=== PATIENT | female | born 1980 | race Caucasian/White ===

== ENCOUNTER → 2017-02-11 | Outpatient (CLI) | payer OTHER ==
[~2017-02-11] MED LIST: CALCIUM PO; CERTAGEN PO; EFFEXOR PO; FISH OIL 1,0001 CAP PO; METFORMIN PO; NEXIUM PO; SINGULAIR PO; SYNTHROID PO; VITAMIN D2000 UNIT PO
--- NOTE | ~2017-02-11 | CR97 ---
[facility] A Service of [facility] RADIOLOGY TEXT RESULTS PATIENT: LALO CHEEMA LOCATION: [facility]MA : 76 UNIT #: [id number] AGE: [address]: German Lynch III, MD SEX: F ORDER DR: [id number] [facility] [address]. [place], [place] [address] [id number] O MR#: [id number] Acc #: [id number] NAME: LALO CHEEMA : 1980 SEX: F STUDY DATE/TIME: 02/11/2017 11:00 UNIT: [facility] ROOM: STUDY DESCRIPTION: CR Esophagram Attending Physician: German Lynch III, M.D. Ordering Physician: German Lynch III, M.D. Primary Care Physician: Mounika Pérez M.D. MEDICAL IMAGING REPORT This report is preliminary unless electronic signature is present EXAM Esophagram, 02/11/2017. HISTORY Dysphagia. Possible slipped band. Pain and swelling in the abdomen for 5 days. TECHNIQUE Single contrast esophagram was performed. 31 images and a pumper gager view were obtained. Fluoro time is 0.6 minutes. COMPARISON KUB, 01/16/2009. FINDINGS The upright pumper gager view shows a gastric band in place with a phi angle of about 69 degrees. It appears slightly rotated toward the horizontal. Bowel gas pattern is normal. Esophageal motility is normal. No rings or strictures are seen. The band does appear to be slipped slightly distally over the stomach. The gastric pouch above the band is slightly larger than expected, and the band does appear to be rotated toward the horizontal. The band is not causing any obstruction at this time. Per patient report, all of the fluid in the band has been recently removed. IMPRESSION The band appears slipped slightly distally over the stomach and is rotated toward the horizontal. It is not causing any obstruction at this time. Dictated by... [facility] A Service [facility] RADIOLOGY TEXT RESULTS PATIENT: LALO CHEEMA LOCATION: [facility] : [birth year] UNIT #: [id number] AGE: [address]: German Lynch III, MD SEX: F ORDER DR: Madhu Jordan Jr., M.D. THIS IS AN ELECTRONICALLY VERIFIED REPORT Madhu Jordan Jr., M.D. at 02/11/2017 2:49 PM KALINA/connie TD: 02/11/2017 14:36 JOB #: [id number] MEDICAL IMAGING REPORT Page 1 of 1 COPY
== END | disposition home or self-care (01) ==
LOC: CRAD 10:07
DX: R13.10 Dysphagia, unspecified (principal)
CPT/HCPCS: 74220

== ENCOUNTER → 2017-02-15 | Outpatient (CLI) | payer OTHER ==
--- NOTE | ~2017-02-15 | EKG ---
PATIENT: LALO CHEEMA UNIT #: [id number] Ventricular Rate: 81 BPM Atrial Rate: 81 BPM P-R Interval: 136 ms QRS Duration: 72 ms Q-T Interval: 356 ms QTC Calculation(Bezet): 413 ms P [place]: 54 degrees Calculated R [place]: 28 degrees Calculated T [place]: 19 degrees Diagnosis Line: Normal sinus rhythm Diagnosis Line: Normal ECG Diagnosis Line: No previous ECGs available Diagnosis Line: Confirmed by DAVEY WALLACE MD ([id number]) on 02/16/2017 Diagnosis Line: 11:14:28 PM INTERPRETING MD: RODRIGO GOMEZ
[2017-02-15 11:18] LABS: BUN/CREATININE RATIO 14.28; CALCIUM SERUM 9.1 mg/dL (8.4-10.2); CREATININE SERUM 0.7 mg/dL (0.6-1.4); GLOM FILT RATE Estimated 109.9 mL/min (>60); POTASSIUM 4.6 mmol/L (3.5-5.1)
== END | disposition home or self-care (01) ==
LOC: CAMB 09:53
PROVIDERS: Surgery
DX: Z01.818 Encounter for other preprocedural examination (principal); K44.9 Diaphragmatic hernia without obstruction or gangrene
CPT/HCPCS: 36415; 80048; 93005

== ENCOUNTER → 2017-02-24 | Day surgery (SDC) | payer OTHER ==
--- NOTE | ~2017-02-24 | OR ---
Unit #: [id number] #: [id number] Patient: LALO CHEEMA 16[address] [address] [address] [id number] O MR#: [id number] NAME: LALO CHEEMA ROOM: Date of Procedure: 02/24/2017 Admission Date: 02/24/2017 Surgeon: German Lynch III, M.D. : 1980 Attending Physician: German Lynch III, M.D. Referring Physician: German Lynch III, M.D. Primary Care Physician: Ila Miranda M.D. OPERATIVE REPORT PREOPERATIVE DIAGNOSIS Paraesophageal hernia with reflux. POSTOPERATIVE DIAGNOSIS Paraesophageal hernia with reflux. PROCEDURE PERFORMED Laparoscopic repair of paraesophageal hernia without fundoplication. HARNESS WORKER Vinod Villar M.D.. SPECIMENS None. COMPLICATIONS None apparent. ESTIMATED BLOOD LOSS Minimal. ANESTHESIA General endotracheal tube anesthesia. INDICATIONS FOR PROCEDURE This is a 36-year-old lady, who presented with some worsening reflux despite being on medication. She had an upper GI, which I reviewed and showed a hiatal hernia with significant reflux. She is here today for laparoscopic paraesophageal hernia repair. DESCRIPTION OF PROCEDURE After consent was obtained, the patient was brought to the operating room and placed in supine position. General anesthetic was administered and her abdomen was prepped and draped in standard surgical fashion. I made a 1 cm incision just above and left of the umbilicus. I used a Visiport to enter into the peritoneal cavity without any difficulty. CO2 pneumoperitoneum was then established. Next, a second 5-mm port was placed in the epigastric region and then removed to provide placement of the James liver retractor. I then placed a 10-mm port in the left upper quadrant and 5 mm ports were placed in the left lateral subcostal region and the right upper quadrant. She had a lap band in place, which looked to be in good position. I did have to unbuckle the band to get to Unit #: [id number] #: [id number] Patient: LALO CHEEMA the top part of the stomach. There were few adhesions from the underside of the liver to the proximal gastric pouch. These were carefully taken down. Once I had the liver retractor in good position, I could identify the hiatal hernia. I scored the phrenoesophageal ligament and dissected out the crura on the right and left side. I tried to minimize the posterior dissection because of the lap band that was in place. Once I had the hernia well identified, I used an interrupted 0 Ethibond [id number] suture to reapproximate the defect. The band was then re-buckled. I did not see any other abnormalities. A James liver retractor was removed. Trocars were removed and pneumoperitoneum was released. I injected all the port sites with 0.25% plain Marcaine and reapproximated the skin edges with interrupted 4-0 Vicryl subcuticular suture. The fundoplication was not performed because of the presence of the lap band. Dictated by... German Lynch III, M.D. VCL/ayden TD: 02/25/2017 08:06 JOB #: [id number] OPERATIVE REPORT Page 1 of 1 X German Lynch III, MD PROCEDURE OPERATIVE NOTE
== END | disposition home or self-care (01) ==
LOC: CSUR 09:00
DX: K44.9 Diaphragmatic hernia without obstruction or gangrene (principal); K21.9 Gastro-esophageal reflux disease without esophagitis; E66.9 Obesity, unspecified; E03.9 Hypothyroidism, unspecified; F41.9 Anxiety disorder, unspecified; F32.9 Major depressive disorder, single episode, unspecified; Z68.31 Body mass index [BMI] 31.0-31.9, adult; Z79.899 Other long term (current) drug therapy; Z98.84 Bariatric surgery status
CPT/HCPCS: J0330; J0690; J2250; J2405; J2710; J3010